=== PATIENT | male | born 1940 | race Caucasian/White ===

== ENCOUNTER 2016-10-28 21:38 | Observation (INO) | payer MEDICARE ==
[~2016-10-28] VITALS: Ht 180.3 cm; Wt 91.7 kg
[2016-10-28] MEDS ORDERED: NORVASC 5 MG TAB5 MG PO (23:00)
[2016-10-28] MEDS ORDERED: VITAMIN C 500500 MG PO (23:01)
[2016-10-28] MEDS ORDERED: ASPIRIN325 MG PO (23:01)
[2016-10-28] MEDS ORDERED: INVOKANA100 MG PO (23:02)
[2016-10-28] MEDS ORDERED: LOTENSIN TAB 1010 MG PO (23:02)
[2016-10-28] MEDS ORDERED: VITAMIN D-32000 UNIT PO (23:03)
[2016-10-28] MEDS ORDERED: PLAVIX 75 MG TA75 MG PO (23:03)
[2016-10-28] MEDS ORDERED: GLIPIZIDE ER10 MG PO (23:03)
[2016-10-28] MEDS ORDERED: LANTUS INS100 UTS/M1 SQ (23:05)
[2016-10-28] MEDS ORDERED: IMDUR ER TAB 6060 MG PO ×2 (23:05→23:06)
[2016-10-28] MEDS ORDERED: LOPRESSOR50 MG PO (23:07)
[2016-10-28] MEDS ORDERED: A THRU Z ADVAN1 EACH PO (23:08)
[2016-10-28] MEDS ORDERED: VISION VITAMIN1 EACH PO (23:08)
[2016-10-28] MEDS ORDERED: NITROSTAT 0.40.4 MG SL (23:09)
[2016-10-28] MEDS ORDERED: OMEGA 3 FISH O1 EACH PO (23:10)
[2016-10-28] MEDS ORDERED: PRAVACHOL40 MG PO (23:10)
[2016-10-28] MEDS ORDERED: VITAMIN B-121000 MCG PO (23:11)
[2016-10-29 06:29] LABS: HEMOGLOBIN 14.6 gm/dl (14.0-17.5); RED BLOOD COUNT 4.8 M/UL (4.20-5.50); WHITE BLOOD COUNT 6.1 K/UL (4.5-11.0)
[2016-10-29 06:57] LABS: BUN/CREATININE RATIO 15 (0-10)
[2016-10-29] MEDS ORDERED: TOPROL XL50 MG PO (07:27)
[2016-10-29] MEDS ORDERED: CARDIZEM CD240 MG PO (14:13)
== END 2016-10-29 15:12 | disposition home or self-care (01) ==
LOC: PROG CARE 21:38
PROVIDERS: ADMIT Internal Medicine
DX: R07.9 Chest pain, unspecified (principal); I25.10 Atherosclerotic heart disease of native coronary artery without angina pectoris; I48.91 Unspecified atrial fibrillation; C61 Malignant neoplasm of prostate; E53.8 Deficiency of other specified B group vitamins; I44.7 Left bundle-branch block, unspecified; I10 Essential (primary) hypertension; E78.5 Hyperlipidemia, unspecified; E11.9 Type 2 diabetes mellitus without complications; R79.89 Other specified abnormal findings of blood chemistry; Z79.82 Long term (current) use of aspirin; Z79.02 Long term (current) use of antithrombotics/antiplatelets; Z79.4 Long term (current) use of insulin; Z79.899 Other long term (current) drug therapy; Z95.1 Presence of aortocoronary bypass graft; Z90.79 Acquired absence of other genital organ(s); Z87.891 Personal history of nicotine dependence
CPT/HCPCS: ECHO; 36415; 71010; 80053; 81001; 82550; 82553; 82570; 82962; 83036; 84156; 84484; 85025; 87040; 87086; 93005; 93306; 96374; G0378; G0379; J0696; J7030; J7050